=== PATIENT | male | born 1965 | race Caucasian/White ===

== ENCOUNTER 2018-07-13 18:35 | Emergency (ER) | payer OTHER | END 2018-07-14 00:57 | disposition home or self-care (01) | LOC: E/R 07-14 00:57 | DX: R09.89 Other specified symptoms and signs involving the circulatory and respiratory systems (principal); R40.2132 Coma scale, eyes open, to sound, at arrival to emergency department; R40.2362 Coma scale, best motor response, obeys commands, at arrival to emergency department; R40.2242 Coma scale, best verbal response, confused conversation, at arrival to emergency department; I10 Essential (primary) hypertension | CPT/HCPCS: 71045; 99283-25 ==